=== PATIENT | female | born 1975 | race Caucasian/White ===

== ENCOUNTER 2021-12-20 00:46 | Day surgery (SDC) | payer OTHER, SELFPAY ==
[2021-12-08 14:42] VITALS: BMI 41.3
[2021-12-20 06:33] VITALS: BP 121/76; PULSE 74; RESP 18; TEMP 36.3; O2SAT 100
[2021-12-20] MEDS: LACTATED RINGERS 1,000 ML 150 ML IV CONT (06:44)
--- NOTE | 2021-12-20 07:00 | WPDANESEPPF ---
Anes - Initial Pre Proc Eval Procedure: Operation Date: 12/20/21 07:30 Proposed Procedures p Screening Colonoscopy - Jarrod Mary MD Date/Time: 12/20/21 07:00 Surgeon: Jarrod Mary MD Pre Op Diagnosis: neoplasm screening Patient Data Age: 46 Gender: F Height: 1.68 m Weight: 120.9 kg Last Vital Signs Temp 36.3 C L 12/20/21 06:33 Pulse 74 12/20/21 06:33 Resp 18 12/20/21 06:33 BP 121/76 12/20/21 06:33 Pulse Ox 100 12/20/21 06:33 Allergies Allergy/AdvReac Type Severity Reaction Status Date / Time No Known Allergies Allergy Verified 12/20/21 06:32 Home Medications Medication Instructions Recorded Confirmed Type cetirizine 10 mg tablet 10 mg PO DAILY 11/20/19 12/08/21 History fluticasone propionate 50 1 spray NASAL DAILY 11/20/19 12/08/21 History mcg/actuation nasal spray,suspension multivitamin 1 tablet PO DAILY 11/20/19 12/08/21 History spironolactone 100 mg tablet 200 mg PO DAILY 11/20/19 12/08/21 History azelastine 137 mcg (0.1 %) nasal 1 spray INTRANASAL DAILY ml 01/10/21 12/08/21 History spray aerosol montelukast 10 mg tablet 10 mg PO DAILY 01/10/21 12/08/21 History Lacto.acidophilus-Bif.animalis 1 cap PO DAILY 12/08/21 12/08/21 History [Daily Probiotic] Patient hx anesthesia problems: none Family hx anesthesia problems: none Results Review: All pre-operative results and documents have been reviewed as part of the pre-operative evaluation. [facility]LY [facility] Past Medical History Medical History Body mass index (BMI) of 40.1 to 44.9 in adult Environmental allergies Sleep apnea Surgical History Surgical History History of bariatric surgery [place] teeth removed Family History Family History Grandparent Family history of malignant neoplasm of breast Mother Family history of malignant neoplasm of breast in first degree relative Other Carcinoma of colon Social History Social History Smoking status: Never smoker Second hand tobacco smoke exposure: No Alcohol intake: current Alcohol use details: 2 drinks monthly Substance use: current Substance use type: marijuana Other substance usage details: Not even monthly Spiritual care concerns: No Anes - Eval Final PreProcedure Day of Procedure 12/20/21 07:00 Patient weight: morbidly obese Heart: regular rate and rhythm Lungs: clear to auscultation Airway: Mallampati scale class II Neurological: alert and oriented Last oral intake: >/= 8 hours ASA classification: III Emergent: no Anesthetic plan: proceed Anesthesia type and monitoring: general GIVS and standard monitoring Results Review: All pre-operative results and documents have been reviewed as part of the pre-operative evaluation. Informed Consent: The patient's anesthetic plan and its attendant risks and benefits were discussed with the patient/family/POA. Questions were solicited and answers provided to the satisfaction of the patient/family/POA.
--- NOTE | 2021-12-20 07:21 | PM.HPGS ---
History of Present Illness History of Present Illness Consent: Risks, benefits, and alternatives have been discussed and questions answered. Patient agrees to proceed with procedure. Chief complaint: neoplasm screening Narrative: Jessy Silverio is a 46 year old female here for first screening colonoscopy Review of Systems Constitutional: Constitutional: Denies headache(s) and Denies weakness Eyes: Eyes: Denies blurry vision ENT: Reports Normal hearing present, Denies headache(s) and Denies neck pain Cardiovascular: Cardiovascular: Denies chest pain and Denies dyspnea Respiratory: Respiratory: Denies dyspnea Gastrointestinal: Gastrointestinal: Reports no additional gastrointestinal complaints Genitourinary: Genitourinary: Denies dysuria Musculoskeletal: Musculoskeletal: Denies neck pain Integumentary/Breasts: Skin/Breast: Denies dry skin Neurologic: Reports Normal hearing present, Denies headache(s) and Denies weakness Psychiatric: Psychiatric: Denies anxiety Endocrine: Endocrine: Denies change in body appearance Hematologic/Lymphatic: Hematologic/Lymphatic: Denies easy bleeding Allergic/Immunologic: Allergic/Immunologic: Denies urticaria PMFSH Past Medical History Medical History (Updated 12/20/21 @ 07:21 by Jarrod Mary MD) Body mass index (BMI) of 40.1 to 44.9 in adult Colon cancer screening Environmental allergies Sleep apnea Surgical History Surgical History History of bariatric surgery [place] teeth removed Family History Family History Grandparent Family history of malignant neoplasm of breast Mother Family history of malignant neoplasm of breast in first degree relative Other Carcinoma of colon Social History Social History Smoking status: Never smoker Second hand tobacco smoke exposure: No Alcohol intake: current Alcohol use details: 2 drinks monthly Substance use: current Substance use type: marijuana Other substance usage details: Not even monthly Spiritual care concerns: No Meds Home Medications and Allergies Home Medications Medication Instructions Recorded Confirmed Type cetirizine 10 mg tablet 10 mg PO DAILY 11/20/19 12/08/21 History fluticasone propionate 50 1 spray NASAL DAILY 11/20/19 12/08/21 History mcg/actuation nasal spray,suspension multivitamin 1 tablet PO DAILY 11/20/19 12/08/21 History spironolactone 100 mg tablet 200 mg PO DAILY 11/20/19 12/08/21 History azelastine 137 mcg (0.1 %) nasal 1 spray INTRANASAL DAILY ml 01/10/21 12/08/21 History spray aerosol montelukast 10 mg tablet 10 mg PO DAILY 01/10/21 12/08/21 History Lacto.acidophilus-Bif.animalis 1 cap PO DAILY 12/08/21 12/08/21 History [Daily Probiotic] Allergies Allergy/AdvReac Type Severity Reaction Status Date / Time No Known Allergies Allergy Verified 12/20/21 06:32 Vital Signs Vital Signs - 24 hr 12/20/21 06:33 Temperature 97.3 F L Pulse Rate 74 Respiratory Rate 18 Blood Pressure 121/76 Pulse Oximetry 100 Exam Const: General: comfortable and no acute distress HENMT: General nose exam: Normal nares present Eyes: General: appearance normal, both eyes and all related structures Neck: Neck: no JVD Resp: Auscultation: clear to auscultation bilaterally Cardio: Rate: regular rate Rhythm: regular rhythm GI: Inspection: non-distended GI Palp: Yes Soft to palpation Skin: General skin exam: normal color Neuro: General: gait normal Speech: normal speech Extrem: General: normal to inspection Psych: Mental Status: mental status grossly normal Assessment and Plan Assessment and plan (1) Colon cancer screening: Code(s): Z12.11 - Encounter for screening for malignant neoplasm of colon Status: Acute Assessment and Jessica
[2021-12-20 08:01] VITALS: BP 91/56; PULSE 74; RESP 20; O2SAT 94
[2021-12-20 08:11] VITALS: BP 112/74; PULSE 68; RESP 20; O2SAT 96
[2021-12-20 08:21] VITALS: BP 116/76; PULSE 66; RESP 20; O2SAT 96
== END 2021-12-20 08:33 | disposition home or self-care (01) ==
PROVIDERS: PCP Family Medicine; Visit Provider Internal Medicine Gastroenterology
PROC: 0DJD8ZZ Inspection of Lower Intestinal Tract, Via Natural or Artificial Opening Endoscopic (ICD-10-PCS; CPT 45378; principal; 2021-12-20 07:30)
DX: Z12.11 Encounter for screening for malignant neoplasm of colon (principal); D12.8 Benign neoplasm of rectum; K63.5 Polyp of colon; K64.8 Other hemorrhoids; G47.30 Sleep apnea, unspecified; E66.01 Morbid (severe) obesity due to excess calories; Z68.41 Body mass index [BMI] 40.0-44.9, adult
CPT/HCPCS: 45385; 88305; J2704; J7120

== ENCOUNTER 2023-04-21 08:18 | Outpatient (CLI) | payer OTHER, SELFPAY ==
--- NOTE | ~2023-04-21 | MM_ITS ---
EXAMINATION: MM screening emily BI w sabra HISTORY: Screening mammogram TECHNIQUE: Craniocaudal and mediolateral oblique 3-D tomosynthesis images were obtained and synthetic 2-D images were generated. CAD analysis was submitted and interpreted. COMPARISON: 08/11/2013 BREAST PARENCHYMAL COMPOSITION:There are scattered areas of fibroglandular density. FINDINGS: No suspicious mass, calcification, or architectural distortion are identified in either sonia ast to suggest malignancy. There has been no suspicious interval change. IMPRESSION: No mammographic evidence of malignancy. Recommend routine screening mammography in one year. BI-RADS Category 1: Negative Reviewed, dictated and finalized at location .
== END 2023-04-21 08:19 | disposition home or self-care (01) ==
LOC: ANHIMG 08:20
PROVIDERS: PCP Family Medicine; Visit Provider Obstetrics & Gynecology
DX: Z12.31 Encounter for screening mammogram for malignant neoplasm of breast (principal)
CPT/HCPCS: 77063; 77067

== ENCOUNTER 2024-04-21 07:56 | Outpatient (CLI) | payer OTHER, SELFPAY ==
--- NOTE | ~2024-04-21 | MR_ITS ---
EXAMINATION: MR breast BI wo/w con INDICATION: High-risk screening TECHNIQUE: Axial VIBRANT pre and dynamic post contrast, Sagittal VIBRANT post contrast, Axial T2 STIR ASSET COMPARISON: None CONTRAST: Multihance, 20 cc BREAST COMPOSITION: Scattered fibroglandular tissue FINDINGS: RIGHT BREAST: There is mild background parenchymal enhancement. No abnormal enhancement is present af ter contrast administration. Probable inverted nipple, without distinct abnormal mass evident. No pat hologically enlarged axillary or internal mammary lymph nodes are identified. LEFT BREAST: There is mild background parenchymal enhancement. No abnormal enhancement is present aft er contrast administration. No pathologically enlarged axillary or internal mammary lymph nodes are i dentified. IMPRESSION: No definite evidence for malignancy. Probable inverted right nipple without distinct abnormal mass. Correlate with physical exam as well as patient history as to chronicity of this finding. BI-RADS Category 1: Negative Reviewed, dictated and finalized at [facility]. IMPRESSION: No definite evidence for malignancy. Probable inverted right nipple without di stinct abnormal mass. Correlate with physical exam as well as patient history a s to chronicity of this finding. BI-RADS Category 1: Negative
== END 2024-04-21 07:57 | disposition home or self-care (01) ==
PROVIDERS: PCP Family Medicine; Visit Provider Surgery
DX: Z12.31 Encounter for screening mammogram for malignant neoplasm of breast (principal); R92.8 Other abnormal and inconclusive findings on diagnostic imaging of breast; Z80.3 Family history of malignant neoplasm of breast
CPT/HCPCS: 77049; A9577; C8908

== ENCOUNTER 2024-06-26 13:15 | Outpatient (RCR) | payer OTHER, SELFPAY ==
--- NOTE | 2024-04-10 14:57 | OPREHPOC ---
Outpatient Therapy Plan of Care This is a Multidisciplinary Plan of Care that may contain components documented by all disciplines (PT, OT, and ST.) PT Problem 1 PT Problem #1 Knowledge Deficit PT Goal 1 Goal 1. Patient will perform independent HEP Target Visit 3 PT Problem 2 PT Problem #2 Impaired Strength PT Goal 1 Goal 1. Pelvic floor strength 4/5 to decrease stress urinary incontinence Target Visit 5 PT Problem 3 PT Problem #3 Impaired Functional ADLs PT Goal 1 Goal 1. Patient will report no pad use for at least 2 weeks 2. Patient will report no more than 1 instance of incontinence for 2 weeks Target Visit 5
--- NOTE | 2024-04-10 14:57 | PTOPEVAL1 ---
Assessment and note entered by Mariah Hidalgo DPT Evaluation Information Assessment Status Evaluation Subjective Information Pt reports concerns over urine leakage, has overall gotten worse over the last 10 years or so. Voids 12 times a day and 1 time at night. Can hold urge to void 15 minutes. Incontinence a few times a week during lifting activities, coughing, sneezing, jumping. Volume varies but has been enough to change clothes. Wears pads inconsistently. Denies pain with urination. BM mostly once a day. Occasionally pain if constipated. Previous pelvic pain with past tampon use and intercourse but has not been consistent. No pain with last exam. Highest pain 2/10 when it does happen. Pt has had 4 pregnancies and 2 vaginal deliveries. Episiotomy and tearing with deliveries. States they think she is perimenopausal. No other [employer] or b/b history. Patient goal: feel confident I can do any activity without urine leakage. States she sometimes avoids activities at the gym and will wear a pad but then it causes discomfort. Next MD follow up is next year. Reported Pain Level Pain Score 0: Self Report Assessment PT Clinical Summary The patient is presenting to skilled therapy with a progressing history of stress urinary incontinence and intermittent pelvic pain. She demonstrates no pain on exam and decreased core and pelvic floor strength. These impairments are contributing to her frequent incontinence and she will benefit from therapy to improve strength in order to return to full function. Plan of Care Interventions Electrical Stimulation,Hot Pack/Cold Pack,Manual Therapy,Neuro Re-education,Patient/Caregiver Education,Therapeutic Activities,Therapeutic Exercise PT Services Indicated Yes Treatment Frequency and 1 time a week for 5 visits Duration These treatments will address the objective and functional deficits as defined above. The patient will be advanced safely and appropriately in order for the patient to progress towards his/her prior level of function. Additional exercises will be introduced and as well as a comprehensive home exercise program upon discharge, if needed, ?to ensure carryover of functional gains achieved in the clinic. This treatment plan has been reviewed and agreement upon by the patient.
--- NOTE | 2024-05-15 14:32 | OPREHPOC ---
Outpatient Therapy Plan of Care This is a Multidisciplinary Plan of Care that may contain components documented by all disciplines (PT, OT, and ST.) PT Problem 1 PT Problem #1 Knowledge Deficit PT Goal 1 Goal 1. Patient will perform independent HEP Target Visit 3 Progress Met PT Problem 2 PT Problem #2 Impaired Strength PT Goal 1 Goal 1. Pelvic floor strength 4/5 to decrease stress urinary incontinence Target Visit 5 Progress Met PT Problem 3 PT Problem #3 Impaired Functional ADLs PT Goal 1 Goal 1. Patient will report no pad use for at least 2 weeks 2. Patient will report no more than 1 instance of incontinence for 2 weeks Target Visit 5 Progress Partially Met Comment 1. not met 2. several times a week
--- NOTE | 2024-05-15 14:32 | PTOPPROG ---
Assessment and note entered by Mariah Hidalgo DPT Evaluation Information Assessment Status Progress Subjective Information Pt reports improvements with therapy and more confident in her ability to hold incontinence. Less anxiety surrounding it. Feels stronger. States she has been sick and coughing over the last week and still leaking, but not enough to change clothes like it would have been previously. Incontinence a few times a week, small amounts. Can hold urge to void 30 minutes and is voiding about 8 times a day. No pain with intercourse or pelvic pain in the last week. Assessment PT Clinical Summary The patient has made good progress in therapy and reports decreased frequency and volume of urinary incontinence. She demonstrates improved pelvic floor strength. Due to her continued incontinence multiple times a week she will benefit from further therapy to eliminate incontinence and return to prior level of function. Plan of Care Interventions Manual Therapy,Neuro Re-education,Patient/ Caregiver Education,Therapeutic Activities, Therapeutic Exercise PT Services Indicated Yes Treatment Frequency and 1 visit every other week x 3 visits Duration These treatments will address the objective and functional deficits as defined above. The patient will be advanced safely and appropriately in order for the patient to progress towards his/her prior level of function. Additional exercises will be introduced and as well as a comprehensive home exercise program upon discharge, if needed, ?to ensure carryover of functional gains achieved in the clinic. This treatment plan has been reviewed and agreement upon by the patient.
--- NOTE | 2024-06-26 13:53 | OPREHPOC ---
Outpatient Therapy Plan of Care This is a Multidisciplinary Plan of Care that may contain components documented by all disciplines (PT, OT, and ST.) PT Problem 1 PT Problem #1 Knowledge Deficit PT Goal 1 Goal / Goal Update 1. Patient will perform independent HEP Target Visit 3 Progress Met PT Problem 2 PT Problem #2 Impaired Strength PT Goal 1 Goal / Goal Update 1. Pelvic floor strength 4/5 to decrease stress urinary incontinence Target Visit 5 Progress Met PT Problem 3 PT Problem #3 Impaired Functional ADLs PT Goal 1 Goal / Goal Update 1. Patient will report no pad use for at least 2 weeks 2. Patient will report no more than 1 instance of incontinence for 2 weeks Target Visit 5 Progress Met
--- NOTE | 2024-06-26 13:53 | PTOPDC ---
Assessment and note entered by Mariah Hidalgo DPT Evaluation Information Assessment Status Discharge Subjective Information Pt reports she has noticed a lot of recent improvement in her incontinence. Noticed a leak yesterday with a big sneeze but otherwise had not had one in over a leak. Feels confident continuing HEP independently. Reported Pain Level Pain Score 0: Self Report Assessment PT Clinical Summary The patient has made excellent progress and therapy and reports greatly decreased frequency of incontinence. She demonstrates improved pelvic floor strength and endurance. Due to her progress, plan for discharge at this time. Patient has been educated to follow up with MD and/or PT as needed . Plan of Care PT Services Indicated No
--- NOTE | 2024-06-26 13:54 | PTOPDC ---
Assessment and note entered by Mariah Hidalgo DPT Evaluation Information Assessment Status Discharge Subjective Information Pt reports she has noticed a lot of recent improvement in her incontinence. Noticed a leak yesterday with a big sneeze but otherwise had not had one in over a week. Feels confident continuing HEP independently. Reported Pain Level Pain Score 0: Self Report Assessment PT Clinical Summary The patient has made excellent progress and therapy and reports greatly decreased frequency of incontinence. She demonstrates improved pelvic floor strength and endurance. Due to her progress, plan for discharge at this time. Patient has been educated to follow up with MD and/or PT as needed . Plan of Care PT Services Indicated No
== END 2024-07-08 13:59 | disposition home or self-care (01) ==
LOC: ANHPT 13:15
PROVIDERS: PCP Family Medicine; Visit Provider Obstetrics & Gynecology
DX: R10.2 Pelvic and perineal pain (principal)
CPT/HCPCS: 97112; 97161; 97530

== ENCOUNTER 2024-09-09 10:14 | Outpatient (CLI) | payer OTHER, SELFPAY ==
--- NOTE | ~2024-09-09 | XR_ITS ---
XR elbow LT 2V Ordering provider: Bree Zuleta PA-C History: . M25.522 - Pain in left elbow X 1 WEEK AFTER FALL . Comparison: None. FINDINGS: BONES: No definite acute fracture or dislocation. JOINT SPACES: Normal. SOFT TISSUES: Normal. No definite joint effusion. IMPRESSION: No definite acute osseous abnormality left elbow. Reviewed, dictated and finalized at location A. ROOM CASHIER
== END 2024-09-09 10:15 | disposition home or self-care (01) ==
PROVIDERS: PCP Family Medicine; Visit Provider Student in an Organized Health Care Education/Training Program
DX: M25.522 Pain in left elbow (principal)
CPT/HCPCS: 73070

== ENCOUNTER 2024-09-11 15:22 | Outpatient (CLI) | payer OTHER, SELFPAY | END 2024-09-11 15:23 | disposition home or self-care (01) | LOC: ANHLAB 15:23 | PROVIDERS: PCP Family Medicine; Visit Provider Nurse Practitioner Obstetrics & Gynecology | DX: R23.2 Flushing (principal) | CPT/HCPCS: 36415; 84443 ==

== ENCOUNTER 2024-11-10 14:35 | Outpatient (CLI) | payer OTHER, SELFPAY ==
--- NOTE | ~2024-11-10 | MM_ITS ---
EXAMINATION: MM screening emily BI w sabra HISTORY: Screening mammogram, family history of breast cancer in her mother. TECHNIQUE: Craniocaudal and mediolateral oblique 3-D tomosynthesis images were obtained and synthetic 2-D images were generated. CAD analysis was submitted and interpreted. COMPARISON: 04/21/2023 BREAST PARENCHYMAL COMPOSITION:Not Dense. The breasts are almost entirely fatty FINDINGS: No suspicious mass, calcification, or architectural distortion are identified in either sonia ast to suggest malignancy. There has been no suspicious interval change. IMPRESSION: No mammographic evidence of malignancy. Recommend routine screening mammography in one year. BI-RADS Category 1: Negative Reviewed, dictated and finalized at location . [employer]
== END 2024-11-10 14:36 | disposition home or self-care (01) ==
LOC: ANHIMG 14:36
PROVIDERS: PCP Family Medicine; Visit Provider Obstetrics & Gynecology
DX: Z12.31 Encounter for screening mammogram for malignant neoplasm of breast (principal)
CPT/HCPCS: 77063; 77067

== ENCOUNTER 2024-12-04 14:09 | Outpatient (CLI) | payer OTHER, SELFPAY ==
--- OUTSIDE RECORDS SUMMARY | 2024-12-04 14:14 | XMS_ITS | Patient Health Summary ---
Author Organization [facility] Address [address] [address] Care Team Providers Care Screener Perfumer Name Role Phone Unavailable Primary Care Provider Unavailabl e Note from [facility],non-owned Affiliates and Associated Physician Practices is amultiple site organization consisting of ambulatory clinics and hospital sitesin [place], [place], [place] and [place]. This disclosure is being madepursuant to the Care Everywhere program and may not contain all information available regarding this patient. Last updated 18.[facility] Social History Tobacco Use Types Packs/Day Years Used Date Smoking Tobacco: Never Assessed Sex and Gender Information Value Date Recorded Sex Assigned at Not on file Gender Identity Not on file Sexual Orientation Not on file Procedures * DERMATOPATHOLOGY(Performed 04/14/2024) * DERMATOPATH TECHNICAL REPORT(Performed 08/12/2018) * DERMATOPATHOLOGY(Performed 08/08/2017) Results * DERMATOPATHOLOGY (04/14/2024 9:54 AM CDT) Only the most recent of2 resultswithin the time period is included. Case Report Dermatopathology Report Case: [id number] Authorizing Provider: Carolyn Vera DO Collected: 04/14/2024 09:54 AM Ordering Location: [facility] - Received: 04/15/2024 06:43 AM DermPath Lab Pathologist: Neelam Palma MD Specimen: Skin, left shoulder 4 5:35 PM CDT DERMATOPATHOLOGY LABORATORY Final Diagnosis Specimen A. SKIN, left shoulder: HEALING SKIN CHANGES (L90.5) (see microscopic description) 4 5:35 PM CDT DERMATOPATHOLOGY LABORATORY Clinical History Nevus vs Folliculitis R/O Atypia 4 5:35 PM CDT DERMATOPATHOLOGY LABORATORY Gross Description Specimen A: Received is one formalin filled container labeled with the patient's name and designated left shoulder. The specimen consists of a shave biopsy measuring 6x5x1 mm. Jar 0. 4 5:35 PM CDT DERMATOPATHOLOGY LABORATORY Microscopic Description Specimen A. SKIN, left shoulder: There is epidermal hyperplasia beneath which there are vascular proliferation, fibroblasts, and an edematous stroma. 4 5:35 PM CDT DERMATOPATHOLOGY LABORATORY Disclaimer An external and internal positive and negative controls are appropriate for the histochemical, immunohistochemical and immunofluorescence stain(s) in this case (if any), except where stated explicitly. The performance characteristics of the stain(s) cited in this report were developed and its performance characteristic determined by the Dermatopathology Laboratory at [facility], directed by Dr. Ashleigh Botello. These tests need not be, and therefore are not, approved by the [place] Food and Drug Administration. The tests are used for clinical purposes. Billing Codes Specimen Charges Stain Charges 11497 1 4 5:35 PM CDT DERMATOPATHOLOGY LABORATORY Embedded Images 4 5:35 PM CDT DERMATOPATHOLOGY LABORATORY Pathology/Cytolo gy TISSUE SPECIMEN FROM SKIN / Unknown 04/14/2024 9:54 AM CDT 04/15/2024 6:43 AM CDT Carolyn Lizetteeber Vera DO LAB - PATHOLOGY/C YTOLOGY ORDERABLES DERMATOPATHOLOGY LABORATORY [facility] - Department of Dermatology [address], [address] [phone] * DERMATOPATH TECHNICAL REPORT (08/12/2018 12:00 AM CDT) Case Report Dermatopathology Report Case: [id number] Authorizing Provider: Cindy Grullon MD Collected: 08/12/2018 12:00 AM Pathologist: Jimi Botello MD Received: 08/13/2018 07:10 AM Specimen: Skin, left jacobsen 12:12 PM CDT DERMATOPATHOLOGY LABORATORY Clinical History R/O dermatofibroma, cuts shaving. [place] brown firm papule. Check margins. 12:12 PM CDT DERMATOPATHOLOGY LABORATORY Gross Description Specimen A: Received is one formalin filled container labeled with the patient's name and designated left jacobsen. The specimen consists of a shave measuring [id number]. The margin is inked green. Jar 0. [facility] performed the technical component only. 12:12 PM CDT DERMATOPATHOLOGY LABORATORY Embedded Images 12:12 PM CDT DERMATOPATHOLOGY LABORATORY DISCLAIMER An external and internal positive and negative controls are appropriate for the histochemical, immunohistochemical and immunofluorescence stain(s) in this case (if any), except where stated explicitly. The performance characteristics of the stain(s) cited in this report were developed and its performance characteristic determined by the Dermatopathology Laboratory at [facility]. These tests need not be, and therefore are not, approved by the [place] Food and Drug Administration. The tests are used for clinical purposes. 12:12 PM T DERMATOPATHOLOGY LABORATORY Pathology/Cytolog y TISSUE SPECIMEN FROM SKIN / Unknown 08/12/2018 08/13/2018 7:10 AM CDT Cindy Grullon MD LAB - PATHOLOGY/CYTO LOGY ORDERABLES DERMATOPATHOLOGY LABORATORY [facility] - Department of Dermatology [address] [place] [address], [address] Floor Lab [address] [phone]
--- OUTSIDE RECORDS SUMMARY | 2024-12-04 14:14 | XMS_ITS | Clinical Summary ---
Author Organization [facility] Address [address] [place] [address] Care Team Providers Care Hang Gliding Instructor Name Role Phone Unavailable Primary Care Provider Unavailabl e Source Comments [facility],non-owned Affiliates and Associated Physician Practices is amultiple site organization consisting of ambulatory clinics and hospital sitesin [place], [place], [place] and [place]. This disclosure is being madepursuant to the Care Everywhere program and may not contain all information available regarding this patient. Last updated 18.[facility] Social History Tobacco Use Types Packs/Day Years Used Date Smoking Tobacco: Never Assessed Sex and Gender Information Value Date Recorded Sex Assigned at Not on file Gender Identity Not on file Sexual Orientation Not on file Plan of Treatment Health Maintenance Due Date Last Done Comments COLOGUARD (AGES 45-75) - COL ON CA SCREENING 1974 COLON MONITORING 1974 COLONOSCOPY - COLON CA SCREENING 1974 CT COLONOGRAPHY - COLON CA SCREENING 1974 Colorectal Cancer Screening 1974 FIT - COLON CA SCREENING 1974 FLEX SIG - COLON CA SCREENING 1974 LIPID TESTING 1974 MAMMOGRAM 1974 PAP SMEAR 1974 HIV SCREENING 1989 HEPATITIS C SCREENING 11/13/1992 DTAP/TDAP/TD VACCINES (1 - Tdap) 1993 HEPATITIS B VACCINE (1 of 3 - 19+ 3-dose series) 1993 COVID-19 VACCINE (1 - 2023-2 5 season) 2024 INFLUENZA VACCINE (#1) 2024 DEPRESSION SCREENING 10/29/2024 PNEUMOCOCCAL VACCINE 50+ (1 of 1 - PCV) 2024 ZOSTER VACCINE (1 of 2) 2024 HIB VACCINE Aged Out No longer eligi ble based on patient's age to complete this topic HPV VACCINE Aged Out No longer eligi ble based on patient's age to complete this topic MENINGOCOCCAL (Group B) VACCINE Aged Out No longer eligible based on patient's age to complete this topic MENINGOCOCCAL VACCINE Aged Out No mendy domonique eligible based on patient's age to complete this topic PNEUMOCOCCAL VACCINE Aged Out No long er eligible based on patient's age to complete this topic Jessy Silverio Personal/Family Self 1975 [facility] [place] [address]
--- OUTSIDE RECORDS SUMMARY | 2024-12-04 14:14 | XMS_ITS | Encounter Summary ---
Author Organization [facility] Address [address] [place] [address] Care Team Providers Care Director Hardware Name Role Phone Unavailable Primary Care Provider Unavailabl e Encounter Details Date Type Department Care Team (Late st Contact Info) Description 08/13/2018 Lab Requisition [facility] D[facility] [address] [place] [id number] Cindy Grullon MD [address] [facility] [place] [address] Social History Tobacco Use Types Packs/Day Years Used Date Smoking Tobacco: Never Assessed Sex and Gender Information Value Date Recorded Sex Assigned at Not on file Gender Identity Not on file Sexual Orientation Not on file documented as of this encounter Plan of Treatment Not on file documented as of this encounter Procedures Procedure Name Priority Date/Time Associated Diagnosis Comments DERMATOPATH TECHNICAL REPORT Routine 08/12/2018 12:00 AM CDT documented in this encounter Results * DERMATOPATH TECHNICAL REPORT (08/12/2018 12:00 AM CDT) Case Report Dermatopathology Report Case: [id number] Authorizing Provider: Cindy Grullon MD Collected: 08/12/2018 12:00 AM Pathologist: Jimi Botello MD Received: 08/13/2018 07:10 AM Specimen: Skin, left jacobsen 8 12:12 PM CDT DERMATOPATHOLOGY LABORATORY Clinical History R/O dermatofibroma, cuts shaving. Olivia Lopez De Gutierrez brown firm papule. Check margins. 8 12:12 PM CDT DERMATOPATHOLOGY LABORATORY Gross Description Specimen A: Received is one formalin filled container labeled with the patient's name and designated left jacobsen. The specimen consists of a shave measuring [id number]. The margin is inked green. Jar 0. [facility] Dermatopathology Laboratory performed the technical component only. 8 12:12 PM CDT DERMATOPATHOLOGY LABORATORY Embedded Images 12:12 PM CDT DERMATOPATHOLOGY LABORATORY DISCLAIMER An external and internal positive and negative controls are appropriate for the histochemical, immunohistochemical and immunofluorescence stain(s) in this case (if any), except where stated explicitly. The performance characteristics of the stain(s) cited in this report were developed and its performance characteristic determined by the Dermatopathology Laboratory at [facility]. These tests need not be, and therefore are not, approved by the [place] Food and Drug Administration. The tests are used for clinical purposes. 8 12:12 PM CDT DERMATOPATHOLOGY LABORATORY Pathology/Cytolog y TISSUE SPECIMEN FROM SKIN / Unknown 08/12/2018 08/13/2018 7:10 AM CDT Cindy Grullon MD LAB - PATHOLOGY/CYTO LOGY ORDERABLES DERMATOPATHOLOGY LABORATORY [facility] - Department of Dermatology [address] [place] [address], [facility] [phone] documented in this encounter Visit Diagnoses Not on filedocumented in this encounter
--- OUTSIDE RECORDS SUMMARY | 2024-12-04 14:14 | XMS_ITS | Referral Summary ---
Author Organization [facility] Address [address] [place] [address] Care Team Providers Care Setter Up Name Role Phone Unavailable Primary Care Provider Unavailabl e Source Comments [facility],non-owned Affiliates and Associated Physician Practices is amultiple site organization consisting of ambulatory clinics and hospital sitesin [place], [place], [place] and [place]. This disclosure is being madepursuant to the Care Everywhere program and may not contain all information available regarding this patient. Last updated 18.[facility] Social History Tobacco Use Types Packs/Day Years Used Date Smoking Tobacco: Never Assessed Sex and Gender Information Value Date Recorded Sex Assigned at Not on file Gender Identity Not on file Sexual Orientation Not on file Plan of Treatment Not on file Jessy Silverio Personal/Family Self 1975 [facility] [place] [address]
--- OUTSIDE RECORDS SUMMARY | 2024-12-04 14:14 | XMS_ITS | Encounter Summary ---
Author Organization [facility] Address [address] [place] [address] Care Team Providers Care Dark Room Attendant Name Role Phone Unavailable Primary Care Provider Unavailabl e Encounter Details Date Type Department Care Team (Late st Contact Info) Description 04/14/2024 Lab Requisition [facility] - DermPath Lab [address] [place] [address] Carolyn Vera DO [address] [place] [address] Social History Tobacco Use Types Packs/Day Years Used Date Smoking Tobacco: Never Assessed Sex and Gender Information Value Date Recorded Sex Assigned at Not on file Gender Identity Not on file Sexual Orientation Not on file documented as of this encounter Plan of Treatment Not on file documented as of this encounter Procedures Procedure Name Priority Date/Time Associated Diagnosis Comments DERMATOPATHOLOGY Routine 04/14/2024 9:54 AM CDT documented in this encounter Results * DERMATOPATHOLOGY (04/14/2024 9:54 AM CDT) Case Report Dermatopathology Report Case: [id number] Authorizing Provider: Carolyn Vera DO Collected: 04/14/2024 09:54 AM Ordering Location: [facility] - Received: 04/15/2024 06:43 AM [...] characteristic determined by the Dermatopathology Laboratory at [facility], directed by Dr. Ashleigh Botello. These tests need not be, and therefore are not, approved by the [place] Food and Drug Administration. The tests are used for clinical purposes. Billing Codes Specimen Charges Stain Charges 97772 1 4 5:35 PM CDT DERMATOPATHOLOGY LABORATORY Embedded Images 5:35 PM CDT DERMATOPATHOLOGY LABORATORY Pathology/Cytolo gy TISSUE SPECIMEN FROM SKIN / Unknown 04/14/2024 9:54 AM CDT 04/15/2024 6:43 AM CDT Carolyn Vera DO LAB - PATHOLOGY/C YTOLOGY ORDERABLES DERMATOPATHOLOGY LABORATORY [facility] - Department of Dermatology [address] [phone] documented in this encounter Visit Diagnoses Not on filedocumented in this encounter
[2024-12-04 15:04] LABS: Influenza A QL RT-PCR Negative (Negative); Influenza B QL RT-PCR Negative (Negative); RSV RNA, RT-PCR Negative (Negative); SARS-CoV-2 RNA PCR Negative (Negative)
== END 2024-12-04 14:10 | disposition home or self-care (01) ==
LOC: ANHLAB 14:11
PROVIDERS: PCP Family Medicine; Visit Provider Family Medicine
DX: J06.9 Acute upper respiratory infection, unspecified (principal)
CPT/HCPCS: 87637